=== PATIENT | female | born 1980 | race Caucasian/White ===

== ENCOUNTER 2024-05-01 17:10 | Emergency (ER) | payer OTHER ==
[2024-05-01] MEDS: ACETAMINOPHEN 500 MG TABLET (FP) PO ONE (17:30)
[2024-05-01 17:38] VITALS: BP 117/83; PULSE 116; RESP 20; TEMP 100.8; BMI 23.8
== END 2024-05-01 19:40 | disposition home or self-care (01) ==
LOC: FER 17:10
DX: J02.9 Acute pharyngitis, unspecified (principal); J06.9 Acute upper respiratory infection, unspecified; R50.9 Fever, unspecified; M79.10 Myalgia, unspecified site; R05.9 Cough, unspecified; J34.89 Other specified disorders of nose and nasal sinuses; R51.9 Headache, unspecified; Z20.822 Contact with and (suspected) exposure to COVID-19
CPT/HCPCS: 0241U-QW; 87651; 99283-25